=== PATIENT | female | born 1945 | race Two or more races ===

== ENCOUNTER 2023-05-13 05:13 | Emergency (ER) | payer OTHER ==
[~2023-05-13] VITALS: Ht 154.9 cm; Wt 55.2 kg
[2023-05-13 06:25] LABS: Basophils # (auto) 0 10 ^3/uL (0-0.2); Eosinophils # (auto) 0.1 10 ^3/uL (0-0.8); Hemoglobin 9.4 g/dL (12.2-16.2); Lymphocytes # (auto) 0.9 10 ^3/uL (0.4-5.4); Monocytes # (auto) 0.4 10 ^3/uL (0-1.3)
[2023-05-13 06:28] LABS: Basophils % (auto) 0.7 % (0.0-2.0); Eosinophils % (auto) 2.6 % (0.0-7.0); Hematocrit 27.1 % (36.0-46.0); Lymphocytes % (auto) 19.4 % (10.0-50.0); Mean Corpuscular Hemoglobin 35.8 pg (28.0-32.0); Mean Corpuscular Hgb Conc. 34.7 g/dL (32.0-36.0); Mean Corpuscular Volume 103.3 fL (80.0-100.0); Monocytes % (auto) 9.7 % (0.0-12.0); Neutrophils % (auto) 67.6 % (37.0-80.0); Nucleated Red Blood Cells % 0.2 %; Red Blood Cells 2.62 10^6/uL (4.0-5.20); Red Cell Distribution Width 13.8 % (11.8-14.3); White Blood Cell 4.4 10^3/uL (4.4-10.8)
[2023-05-13 07:07] LABS: Potassium 3.8 mmol/L (3.5-5.1)
[2023-05-13 07:22] LABS: BUN/Creatinine Ratio 6.9 (10.0-20.0); Bilirubin, Total 0.4 mg/dL (0.2-1.0); Total Protein 7.1 g/dL (6.4-8.2)
[2023-05-13 08:30] VITALS: BP 149/57
== END 2023-05-13 08:36 | disposition home or self-care (01) ==
LOC: ER 05:13
DX: N18.6 End stage renal disease (principal); Z99.2 Dependence on renal dialysis
CPT/HCPCS: 36415; 80053; 85025